=== PATIENT | female | born 1995 | race Caucasian/White ===

== ENCOUNTER 2018-12-16 01:45 | Emergency (ER) | payer MEDICAID ==
[~2018-12-16] VITALS: Ht 167.6 cm; Wt 63.5 kg
--- NOTE | 2018-12-16 01:52 | Emergency Room Report ---
History of Present Illness General Chief Complaint: Alcohol Intoxication Source: Patient, EMS Present Illness HPI Is a 23-year-old female presents with alcohol intoxication. She was at a friend 's house and been drinking tonight. She also smokes marijuana. She was very intoxicated and pass out so friends called 911 because she would not wake up. No vomiting. No trauma. Patient admits to drinking alcohol here. History is limited because of intoxication. Patient History Past Medical History: see triage record, old chart reviewed Past Surgical History: none Pertinent Family History: none Social History: Reports: alcohol use Now: No Immunizations: other Reviewed Nursing Documentation: PMH: Agreed; PSxH: Agreed Review of Systems Eye: Denies: eye pain, blurred vision ENT: Denies: ear pain, nose congestion, throat swelling Respiratory: Denies: cough, shortness of breath Cardiovascular: Denies: chest pain, palpitations Gastrointestinal: Denies: abdominal pain, diarrhea, nausea, vomiting Musculoskeletal: Denies: back pain, joint pain Skin: Denies: rash Neurological: Denies: headache, numbness Endocrine: Denies: increased thirst, increased urine Hematologic/Lymphatic: Denies: easy bruising All Other Systems: negative except mentioned in HPI Physical Exam Vital Signs Date Time Temp Pulse Resp B/P (MAP) Pulse Ox O2 Delivery O2 Flow Rate FiO2 12/16/18 01:46 97.9 69 20 106/68 (81) 99 Room Air Vitals normal Sp02 EP Interpretation: reviewed, normal General Appearance: well appearing, no apparent distress, other - Drowsy, intoxicated Head: normocephalic, atraumatic Eyes: bilateral eye PERRL, bilateral eye EOMI ENT: hearing grossly normal, normal pharynx Neck: full range of motion, supple, no meningismus Respiratory: chest non-tender, lungs clear, normal breath sounds Cardiovascular #1: regular rate, rhythm, no murmur Gastrointestinal: normal bowel sounds, non tender, no mass, no organomegaly, no bruit, non-distended Musculoskeletal: back normal, normal range of motion Psychiatric: mood/affect normal Medical Decision Making Diagnostic Impression: Primary Impression: Acute alcoholic intoxication Qualified Codes: F10.920 - Alcohol use, unspecified with intoxication, uncomplicated ER Course Presents with alcohol intoxication. No trauma to warrant x-ray or CT scan. She is better now. When she is more clinically sober, mom says she will call an Uber to pick pt up. Last Vital Signs Date Time Temp Pulse Resp B/P (MAP) Pulse Ox O2 Delivery O2 Flow Rate FiO2 12/16/18 01:46 97.9 69 20 106/68 (81) 99 Room Air Status: improved Disposition: HOME, SELF-CARE Condition: Stable Patient Instructions: Alcohol Intoxication, [id number] Additional Instructions: Follow with your doctor in 7 days. Return for any concern. Jarret Marquez MD Dec 16, 2018 01:52
[2018-12-16 02:05] VITALS: BP 106/68
--- NOTE | 2018-12-16 02:10 | NUR ---
ED Nurse Note: Patient was brought in by ambulance RA 26, patient drank too much, c/o ETOH and smoked weed. Friends called 911 after she passed out. Patient presented sleepy, lethargic, Vss at this time.
[2018-12-16 04:06] VITALS: BP 115/65
[2018-12-16 04:53] VITALS: BP 115/65
--- NOTE | 2018-12-16 04:56 | NUR ---
ER DISCHARGE NOTE: Patient is cleared to be discharged per ERMD, pt is aox4, on room air, with stable vital signs. pt was given dc and prescription instructions, pt was able to verbalize understanding, pt id band and iv site removed without complications. pt is able to ambulate with steady gait. pt took all belongings.
== END 2018-12-16 04:56 | disposition home or self-care (01) ==
LOC: EDBD 01:45 → EMR 02:14
DX: F10.920 Alcohol use, unspecified with intoxication, uncomplicated (principal); F12.10 Cannabis abuse, uncomplicated
CPT/HCPCS: 36415; G0480; Z7502; 99283